=== PATIENT | female | born 1980 | race Caucasian/White ===

== ENCOUNTER 2019-04-14 10:33 | Emergency (ER) | payer SELFPAY ==
[~2019-04-14] VITALS: Ht 152.4 cm; Wt 63.5 kg
[2019-04-14 10:38] VITALS: BP 124/77
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
[2019-04-14] MEDS ORDERED: NACL 0.9% 1,000 ML IV SCH (11:34)
[2019-04-14] MEDS ORDERED: NACL 0.9% 1,000 ML IV ONE (11:34)
[2019-04-14] MEDS ORDERED: PROMETHAZINE 25 MG SUPP RC ONE (11:35)
[2019-04-14] MEDS ORDERED: MECLIZINE 25 MG TAB PO ONE (11:35)
[2019-04-14] MEDS ORDERED: ONDANSETRON 4 MG/2 ML VIAL IVP ONE (11:35)
[2019-04-14] MEDS ORDERED: FAMOTIDINE 20 MG TAB PO ONE (11:35)
--- NOTE | 2019-04-14 12:13 | NUR ---
Patient taken to CT scan via wheelchair by tech.
[2019-04-14 12:17] LABS: BASOPHILS % (AUTO) 0.4 % (0.0-2.0); EOSINOPHILS # (AUTO) 0.1 K/uL (0-0.4); EOSINOPHILS % (AUTO) 0.9 % (0.0-4.0); HEMATOCRIT 40.1 % (36-48); HEMOGLOBIN 13.3 g/dL (12.0-16.0); LYMPHOCYTES # (AUTO) 1.2 K/uL (2.5-16.5); LYMPHOCYTES % (AUTO) 18.9 % (20.5-51.1); MEAN CORPUSCULAR HEMOGLOBIN 27 pg (27-31); MEAN CORPUSCULAR HGB CONC 33 g/dL (33-37); MEAN CORPUSCULAR VOLUME 81.1 fL (80-94); MONOCYTES # (AUTO) 0.3 K/uL (0.8-1.0); NEUTROPHILS # (AUTO) 4.9 K/uL (1.8-7.7); NEUTROPHILS % (AUTO) 75.8 % (42.2-75.2); PLATELET COUNT (AUTO) 247 K/uL (140-450); RED BLOOD CELL COUNT(AUTO) 4.94 MIL/uL (4.20-5.40); RED CELL DISTRIBUTION WIDTH 13.7 % (11.6-13.7); WHITE BLOOD COUNT (AUTO) 6.5 K/uL (4.8-10.8)
[2019-04-14 12:30] LABS: ANION GAP 17.9 (8-16); CARBON DIOXIDE 22.9 mmol/L (21-32); CREATININE 0.7 mg/dL (0.6-1.3); POTASSIUM 3.8 mmol/L (3.5-5.1); TOTAL BILIRUBIN 0.3 mg/dL (0.0-1.0)
[2019-04-14 12:47] LABS: APPEARANCE,URINE HAZY (CLEAR); BILIRUBIN,URINE NEGATIVE (NEGATIVE); BLOOD, URINE NEGATIVE (NEGATIVE); COLOR,URINE YELLOW (YELLOW); LEUKOCYTE ESTERASE ,URINE NEGATIVE (NEGATIVE); NITRITE, URINE NEGATIVE (NEGATIVE); UGLUCOSE 3+ (NEGATIVE)
[2019-04-14 13:06] LABS: RBC,URINE 0-5 /HPF (0-5)
[2019-04-14 13:07] LABS: WBC,URINE 0-5 /HPF (0-5)
[2019-04-14 13:54] VITALS: BP 105/65
[2019-04-14 14:58] LABS: BARBITURATE, URINE NEG. ng/ml (NEG <=200); BENZODIAZEPINE, URINE NEG. ng/mL (NEG <=200); CANNABINOID, URINE NEG. ng/mL (NEG <=50); COCAINE, URINE NEG. ng/mL (NEG <=300); OPIATE, URINE NEG. ng/mL (NEG <=2000); PHENCYCLIDINE SCREEN,URINE NEG. ng/mL (NEG <=25)
--- NOTE | 2019-04-18 13:37 | NUR ---
Late entry. Confirmed with RN that 1000ml 0.9 NS IV bolus completed at 1300
== END 2019-04-14 13:54 | disposition home or self-care (01) ==
LOC: MED 10:33
DX: R42 Dizziness and giddiness (principal); K13.79 Other lesions of oral mucosa; E11.9 Type 2 diabetes mellitus without complications
CPT/HCPCS: 36415; 70450; 80053; 80305; 81001; 81025; 82150; 83690; 84703; 85025; 96361; 96374; 99284; J2405; J2550; J7030; J8597

== ENCOUNTER 2021-08-10 08:57 | Emergency (ER) | payer SELFPAY ==
[~2021-08-10] VITALS: Ht 152.4 cm; Wt 58.1 kg
[2021-08-10 09:04] VITALS: BP 134/80
[2021-08-10] MEDS ORDERED: NACL 0.9% 1,000 ML IV STA ×2 (09:31→10:43)
[2021-08-10] MEDS ORDERED: PROCHLORPERAZINE 10 MG/2 ML VIAL IVP ONE (09:35)
[2021-08-10 10:03] LABS: BASOPHILS # (AUTO) 0.1 K/uL (0.00-0.22); EOSINOPHILS % (AUTO) 0.3 % (0.0-4.0); HEMATOCRIT 38.4 % (36-48); HEMOGLOBIN 12.9 g/dL (12.0-16.0); LYMPHOCYTES # (AUTO) 1.2 K/uL (2.5-16.5); LYMPHOCYTES % (AUTO) 14.1 % (20.5-51.1); MEAN CORPUSCULAR HEMOGLOBIN 27 pg (27-31); MEAN CORPUSCULAR HGB CONC 34 g/dL (33-37); MEAN CORPUSCULAR VOLUME 81.4 fL (80-94); MONOCYTES # (AUTO) 0.2 K/uL (0.8-1.0); MONOCYTES % (AUTO) 2.8 % (1.7-9.3); NEUTROPHILS # (AUTO) 6.9 K/uL (1.8-7.7); NEUTROPHILS % (AUTO) 81.8 % (42.2-75.2); PLATELET COUNT (AUTO) 245 K/uL (140-450); RED BLOOD CELL COUNT(AUTO) 4.71 MIL/uL (4.20-5.40); RED CELL DISTRIBUTION WIDTH 13.7 % (11.6-13.7); WHITE BLOOD COUNT (AUTO) 8.5 K/uL (4.8-10.8)
[2021-08-10 10:04] LABS: APPEARANCE,URINE CLEAR (CLEAR); BILIRUBIN,URINE NEGATIVE (NEGATIVE); BLOOD, URINE NEGATIVE (NEGATIVE); COLOR,URINE YELLOW (YELLOW); LEUKOCYTE ESTERASE ,URINE TRACE (NEGATIVE); NITRITE, URINE POSITIVE (NEGATIVE); PH,URINE 7.5 (5.0-9.0); UGLUCOSE 3+ (NEGATIVE)
[2021-08-10 10:22] LABS: RBC,URINE 0-5 /HPF (0-5); WBC,URINE 0-5 /HPF (0-5)
[2021-08-10 10:36] LABS: BILIRUBIN,DIRECT 0.1 mg/dL (0.0-0.3); TOTAL BILIRUBIN 0.4 mg/dL (0.0-1.0)
[2021-08-10 10:43] LABS: POTASSIUM 4.3 mmol/L (3.5-5.1)
[2021-08-10 10:44] LABS: ANION GAP 16.6 (8-16); CARBON DIOXIDE 27.7 mmol/L (21-32); CREATININE 0.7 mg/dL (0.6-1.3)
[2021-08-10] MEDS ORDERED: ACET-10509 PO (11:30)
[2021-08-10 11:40] VITALS: BP 112/76
== END 2021-08-10 11:41 | disposition home or self-care (01) ==
LOC: MED 08:57
DX: G43.909 Migraine, unspecified, not intractable, without status migrainosus (principal); E11.9 Type 2 diabetes mellitus without complications; R11.2 Nausea with vomiting, unspecified
CPT/HCPCS: 36415; 71045; 80048; 80076; 81001; 82009; 82803; 83605; 83690; 84484; 85025; 87040; 93005; 96361; 96374; 99285; J0780; J7030

== ENCOUNTER 2021-12-15 03:52 | Emergency (ER) | payer MEDICAID ==
[~2021-12-15] VITALS: Ht 154.9 cm; Wt 59.0 kg
[2021-12-15 03:52] VITALS: BP 128/83
[~2021-12-15 03:52] MED LIST: ACET-10509 PO
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
--- NOTE | 2021-12-15 03:55 | NUR ---
BIBA TAKEN TO BED #1
[2021-12-15] MEDS ORDERED: KETOROLAC 60 MG/2 ML VIAL IM ONE (04:45)
[2021-12-15] MEDS ORDERED: ACET-8386 PO (05:28)
[2021-12-15] MEDS ORDERED: IBUP-2213 PO (05:28)
[2021-12-15 06:32] VITALS: BP 128/83
--- NOTE | 2021-12-15 06:32 | NUR ---
Patient discharged with v/s stable. Written and verbal after care instructions given and explained. Patient alert, oriented and verbalized understanding of instructions. Ambulatory with steady gait. All questions addressed prior to discharge. ID band removed. Patient advised to follow up with PMD. Rx of IBUPROFEN AND HYDROCODON-ACETAMINOPHEN given. Patient educated on indication of medication including possible reaction and side effects. Opportunity to ask questions provided and answered.
== END 2021-12-15 06:32 | disposition home or self-care (01) ==
LOC: MED 03:52
DX: S13.8XXA Sprain of joints and ligaments of other parts of neck, initial encounter (principal); V49.3XXA Car occupant (driver) (passenger) injured in unspecified nontraffic accident, initial encounter; Y92.89 Other specified places as the place of occurrence of the external cause; Y93.89 Activity, other specified; Y99.8 Other external cause status; E11.9 Type 2 diabetes mellitus without complications; Z79.899 Other long term (current) drug therapy
CPT/HCPCS: 72040; 96372; 99283; J1885